=== PATIENT | male | born 1960 | race African-American/Black ===

== ENCOUNTER 2017-11-26 12:51 | Inpatient (IN) | payer OTHER ==
[~2017-11-26] VITALS: Ht 215.9 cm; Wt 81.6 kg
[2017-11-26 15:30] LABS: BASOPHILS % 0.5 % (0.0-2.0); EOSINOPHILS % 2.3 % (0.0-5.0); HEMATOCRIT. 38.8 % (42.0-52.0); HEMOGLOBIN. 13.3 g/dL (14.0-18.0); LYMPHOCYTES % 10.9 % (20.0-50.0); MEAN CORPUSCULAR HEMOGLOBIN 31.3 pg (28.0-32.0); MEAN CORPUSCULAR VOLUME 91.3 fL (80.0-94.0); MEAN PLATELET VOLUME 8.3 fl (7.4-10.4); MONOCYTES % 8.9 % (2.0-8.0); NEUTROPHILS % 77.4 % (40.0-76.0); PLATELET 246 x1000/uL (130-400); RED BLOOD CELL COUNT 4.25 mill/uL (4.7-6.1); RED CELL DISTRIBUTION WIDTH 13.9 % (11.6-14.6)
[2017-11-26 15:37] LABS: CHLORIDE 108 mEq/L (98-107); PROTHROMBIN TIME 10.7 sec (9.4-11.6)
[2017-11-26] MEDS ORDERED: PIPERACILLIN/TAZOBACTAM 3.375GM/50ML PREMIX IV ONE (17:00)
[2017-11-26] MEDS ORDERED: VANCOMYCIN 750 MG PREMIX 150 ML IV SCH (17:00)
[2017-11-26] MEDS ORDERED: PIPERACILLIN/TAZ 3.375G PREMIX 50 ML IV NR (17:03)
[2017-11-26] MEDS ORDERED: GADOBENATE DIMEGLUMINE 529 MG/ML 10ML IV ONE (17:30)
[2017-11-26] MEDS ORDERED: MORPHINE SULFATE 4 MG/ML CPJ (NOT FOR IM USE) IV ONE (18:30)
[2017-11-26 21:00] VITALS: BP 133/90
[2017-11-26] MEDS ORDERED: ACETAMINOPHEN 325MG TABLET PO PRN (21:30)
[2017-11-26] MEDS ORDERED: ONDANSETRON HCL 4MG/2ML VIAL IV PRN (21:30)
[2017-11-26 21:48] VITALS: BP 133/90
[2017-11-26] MEDS: HYDROMORPHONE HCL/PF 2MG/ML CPJ IV PRN (22:43)
[2017-11-27] VITALS: BP 105/68
[2017-11-27 04:00] VITALS: BP 98/64
[2017-11-27 05:38] LABS: CLARITY URINE CLOUDY (CLEAR); COLOR URINE YELLOW (YELLOW); KETONES URINE TRACE (NEGATIVE); LEUKOCYTE ESTERASE URINE NEGATIVE (NEGATIVE); NITRITE URINE NEGATIVE (NEGATIVE); OCCULT BLOOD URINE NEGATIVE (NEGATIVE); PROTEIN URINE NEGATIVE (NEGATIVE); SPECIFIC GRAVITY URINE 1.026 (1.005-1.030)
[2017-11-27 06:09] LABS: BASOPHILS % 0.5 % (0.0-2.0); EOSINOPHILS % 2.2 % (0.0-5.0); HEMATOCRIT. 36.6 % (42.0-52.0); HEMOGLOBIN. 12.5 g/dL (14.0-18.0); LYMPHOCYTES % 21.9 % (20.0-50.0); MEAN CORPUSCULAR HEMOGLOBIN 31.3 pg (28.0-32.0); MEAN CORPUSCULAR VOLUME 91.7 fL (80.0-94.0); MEAN PLATELET VOLUME 8.6 fl (7.4-10.4); MONOCYTES % 10.8 % (2.0-8.0); NEUTROPHILS % 64.6 % (40.0-76.0); PLATELET 249 x1000/uL (130-400); RED BLOOD CELL COUNT 3.99 mill/uL (4.7-6.1); RED CELL DISTRIBUTION WIDTH 14.2 % (11.6-14.6)
[2017-11-27 08:01] VITALS: BP 110/75
[2017-11-27] MEDS: ENOXAPARIN 40MG/0.4ML SYR SUBCUT SCH (10:12)
[2017-11-27] MEDS ORDERED: CALCIUM CARBONATE 1250MG TABLET (500MG ELEMENTAL CALCIUM) PO NR (10:30)
[2017-11-27] MEDS: HYDROCODONE/ACETAMINOPHEN 5/325MG TABLET PO PRN ×3 (10:31→22:21)
[2017-11-27 11:58] VITALS: BP 108/73
[2017-11-27] MEDS: LEVOFLOXACIN 500MG TABLET PO SCH (12:39)
[2017-11-27] MEDS: GABAPENTIN 100MG CAPSULE PO SCH ×2 (14:17→20:32)
[2017-11-27 16:59] LABS: VITAMIN B12 SERUM 280 pg/mL (211-911)
[2017-11-27 17:06] VITALS: BP 112/85
[2017-11-27 20:00] VITALS: BP 106/72
[2017-11-28] VITALS: BP 100/67
[2017-11-28 04:00] VITALS: BP 100/69
[2017-11-28] MEDS: GABAPENTIN 100MG CAPSULE PO SCH ×3 (05:39→21:24)
[2017-11-28 06:27] LABS: BASOPHILS % 0.7 % (0.0-2.0); EOSINOPHILS % 3.6 % (0.0-5.0); HEMATOCRIT. 40.7 % (42.0-52.0); HEMOGLOBIN. 13.8 g/dL (14.0-18.0); LYMPHOCYTES % 24.2 % (20.0-50.0); MEAN CORPUSCULAR HEMOGLOBIN 31.3 pg (28.0-32.0); MEAN PLATELET VOLUME 8.5 fl (7.4-10.4); MONOCYTES % 13.6 % (2.0-8.0); NEUTROPHILS % 57.9 % (40.0-76.0); PLATELET 265 x1000/uL (130-400); RED BLOOD CELL COUNT 4.42 mill/uL (4.7-6.1); RED CELL DISTRIBUTION WIDTH 14.1 % (11.6-14.6)
[2017-11-28 07:42] VITALS: BP 105/70
[2017-11-28 07:49] LABS: CHLORIDE 103 mEq/L (98-107)
[2017-11-28] MEDS: CALCIUM CARBONATE 1250MG TABLET (500MG ELEMENTAL CALCIUM) PO SCH (09:25)
[2017-11-28] MEDS: CHOLECALCIFEROL (D3) 1000 UNIT TABLET PO SCH (09:25)
[2017-11-28] MEDS: ENOXAPARIN 40MG/0.4ML SYR SUBCUT SCH (09:26)
[2017-11-28] MEDS: LEVOFLOXACIN 500MG TABLET PO SCH (11:00)
[2017-11-28] MEDS: HYDROMORPHONE HCL/PF 2MG/ML CPJ IV PRN ×2 (11:01→18:49)
[2017-11-28 12:12] VITALS: BP 107/59
[2017-11-28] MEDS: IPRATROPIUM/ALBUTEROL 0.5-3(2.5)MG/3ML NEB HHN SCH ×2 (13:47→20:37)
[2017-11-28] MEDS: LORATADINE 10MG TABLET PO SCH (14:08)
[2017-11-28 16:00] VITALS: BP 101/70
[2017-11-28 20:00] VITALS: BP 104/68
[2017-11-29] VITALS: BP 99/72
[2017-11-29] MEDS: HYDROMORPHONE HCL/PF 2MG/ML CPJ IV PRN (00:10)
[2017-11-29] MEDS: IPRATROPIUM/ALBUTEROL 0.5-3(2.5)MG/3ML NEB HHN SCH ×4 (00:46→20:23)
[2017-11-29 04:29] VITALS: BP 88/59
[2017-11-29] MEDS: GABAPENTIN 100MG CAPSULE PO SCH ×3 (05:25→23:55)
[2017-11-29 06:47] LABS: BASOPHILS % 0.4 % (0.0-2.0); EOSINOPHILS % 3.7 % (0.0-5.0); HEMATOCRIT. 38.6 % (42.0-52.0); HEMOGLOBIN. 13.1 g/dL (14.0-18.0); LYMPHOCYTES % 25.8 % (20.0-50.0); MEAN CORPUSCULAR HEMOGLOBIN 31.4 pg (28.0-32.0); MEAN CORPUSCULAR VOLUME 92.4 fL (80.0-94.0); MEAN PLATELET VOLUME 8.4 fl (7.4-10.4); MONOCYTES % 11.3 % (2.0-8.0); NEUTROPHILS % 58.8 % (40.0-76.0); PLATELET 283 x1000/uL (130-400); RED BLOOD CELL COUNT 4.18 mill/uL (4.7-6.1); RED CELL DISTRIBUTION WIDTH 13.8 % (11.6-14.6)
[2017-11-29 07:18] LABS: CHLORIDE 100 mEq/L (98-107)
[2017-11-29 08:00] VITALS: BP 106/70
[2017-11-29] MEDS: CHOLECALCIFEROL (D3) 1000 UNIT TABLET PO SCH (08:39)
[2017-11-29] MEDS: CALCIUM CARBONATE 1250MG TABLET (500MG ELEMENTAL CALCIUM) PO SCH (08:39)
[2017-11-29] MEDS: ENOXAPARIN 40MG/0.4ML SYR SUBCUT SCH (08:39)
[2017-11-29] MEDS: LORATADINE 10MG TABLET PO SCH (08:39)
[2017-11-29 12:00] VITALS: BP 101/67
[2017-11-29] MEDS: HYDROCODONE/ACETAMINOPHEN 5/325MG TABLET PO PRN (14:17)
[2017-11-29 16:00] VITALS: BP 94/62
[2017-11-29 20:00] VITALS: BP 105/60
[2017-11-30] VITALS (7 sets, daily range): BP systolic 94–112; BP diastolic 65–76
[2017-11-30] MEDS: HYDROMORPHONE HCL/PF 2MG/ML CPJ IV PRN ×2 (00:02→23:33)
[2017-11-30] MEDS: GABAPENTIN 100MG CAPSULE PO SCH ×3 (06:37→23:20)
[2017-11-30] MEDS: CHOLECALCIFEROL (D3) 1000 UNIT TABLET PO SCH (07:59)
[2017-11-30] MEDS: CALCIUM CARBONATE 1250MG TABLET (500MG ELEMENTAL CALCIUM) PO SCH (08:00)
[2017-11-30] MEDS: LORATADINE 10MG TABLET PO SCH (08:00)
[2017-11-30] MEDS: ENOXAPARIN 40MG/0.4ML SYR SUBCUT SCH (08:01)
[2017-11-30] MEDS: IPRATROPIUM/ALBUTEROL 0.5-3(2.5)MG/3ML NEB HHN SCH ×4 (09:13→21:35)
[2017-12-01] VITALS: BP 105/72
[2017-12-01] MEDS: IPRATROPIUM/ALBUTEROL 0.5-3(2.5)MG/3ML NEB HHN SCH ×2 (03:00→07:50)
[2017-12-01 04:00] VITALS: BP 102/66
[2017-12-01] MEDS: GABAPENTIN 100MG CAPSULE PO SCH (07:13)
[2017-12-01 08:00] VITALS: BP 101/74
[2017-12-01] MEDS: CHOLECALCIFEROL (D3) 1000 UNIT TABLET PO SCH (08:11)
[2017-12-01] MEDS: CALCIUM CARBONATE 1250MG TABLET (500MG ELEMENTAL CALCIUM) PO SCH (08:11)
[2017-12-01] MEDS: LORATADINE 10MG TABLET PO SCH (08:11)
[2017-12-01] MEDS: ENOXAPARIN 40MG/0.4ML SYR SUBCUT SCH (08:11)
== END 2017-12-01 11:45 | disposition home or self-care (01) | DRG 552 ==
LOC: ER 13:00 → 6EST 19:07 → ENRESERV 20:06 → 6EST 11-27 01:29
PROVIDERS: ADMIT Internal Medicine Geriatric Medicine; ATTEND Internal Medicine Geriatric Medicine
DX: M47.26 Other spondylosis with radiculopathy, lumbar region (principal); M48.02 Spinal stenosis, cervical region; M47.16 Other spondylosis with myelopathy, lumbar region; G89.4 Chronic pain syndrome; R29.6 Repeated falls; M43.16 Spondylolisthesis, lumbar region; F17.210 Nicotine dependence, cigarettes, uncomplicated; J02.9 Acute pharyngitis, unspecified; M48.061 Spinal stenosis, lumbar region without neurogenic claudication; D64.9 Anemia, unspecified; G83.10 Monoplegia of lower limb affecting unspecified side; Z71.6 Tobacco abuse counseling
CPT/HCPCS: 36415; 70450; 70551; 71045; 72131; 72141; 72146; 72158; 80048; 80053; 81003; 82607; 82962; 83605; 84443; 85025; 85610; 85651; 87040; 87086; 93005; 94640; 97162; 97166; A9577; J1170; J1650; J2270; J2543; J3370; J7620